=== PATIENT | female | born 1965 | race Caucasian/White ===

== ENCOUNTER → 2017-11-14 | Outpatient (CLI) | payer OTHER ==
[~2017-11-14] MED LIST: ALBU8.5H IH; APIX5TAB PO; ASPI-757 PO; AZIT-17 PO; CLOP75TA43 PO; COMPRESSION HOSE; METH4TAB66 PO; SUPPLEMENTS
--- NOTE | 2017-11-15 08:23 | RADIOLOGY IMAGING REPORT ---
FACILITY: [facility] - [place] PATIENT NAME: IHSAN GALINDO : [id number] MR: [id number] V: [id number] EXAM DATE: [id number] ORDERING PHYSICIAN: CHUY PERALTA TECHNOLOGIST: Kathryn Jhonston PROCEDURE:LEFT DIGITAL DIAGNOSTIC MAMMOGRAM WITH CAD ASSISTED INTERPRETATION & 3D TOMOSYNTHESIS. COMPARISON:Prior mammograms 07/17/17, 06/26/17. INDICATIONS:f/u l breast nodule FINDINGS: Small amount of fibroglandular tissue is seen throughout the Left breast. The vague area of architectural distortion upper outer quadrant of the Left breast appears less prominent. The nodular density in the upper outer quadrant of the Left breast also appears less prominent. There is no demonstration of malignant appearing mass, malignant appearing calcifications or other secondary sign of malignancy in the Left breast. DIAGNOSTIC CATEGORY 3--PROBABLY BENIGN FINDING. RECOMMENDATIONS: SIX MONTH FOLLOW-UP SCREENING MAMMOGRAM: BILATERAL BREASTS. IMPRESSION: BIRADS 3: Probably benign finding A 6 month follow-up bilateral mammogram is recommended at which time the patient will be due for her annual mammogram. Dictated by: Sepideh Milner M.D. on 11/14/2017 at 16:06 Transcribed by: CHRISTIANO on 11/15/2017 at 8:16 Approved by: Sepideh Milner M.D. on 11/15/2017 at 8:22 [facility]
== END ==
LOC: MAMO 01:46
PROVIDERS: ATTEND Emergency Medicine
DX: N63.20 Unspecified lump in the left breast, unspecified quadrant (principal); R92.8 Other abnormal and inconclusive findings on diagnostic imaging of breast
CPT/HCPCS: 77065

== ENCOUNTER → 2017-11-29 | Outpatient (CLI) | payer OTHER ==
[2017-11-29 16:03] LABS: PLATELET COUNT, AUTOMATED 252 K/uL (150-450)
--- NOTE | 2017-11-29 16:21 | RADIOLOGY IMAGING REPORT ---
FACILITY: [facility] PATIENT NAME: Edwin Lopez : 1965 MR: [id number] V: [id number] EXAM DATE: ORDERING PHYSICIAN: OG SALGUERO TECHNOLOGIST: Location: [facility] Patient: Edwin Lopez : 1965 Visit/Account:[id number] Date of Sevice: 11/29/2017 2 VIEWS CHEST INDICATION: Shortness of breath for one day. COMPARISON: 03/12/2016. FINDINGS: Cardiomediastinal silhouette and pulmonary vessels within normal limits. There is no focal infiltrate or lobar consolidation. There is no pneumothorax or pleural effusion. No nodule. Upper abdomen is unremarkable. No acute bony abnormality. IMPRESSION: 1. No acute cardiopulmonary process. Report Dictated By: Ayden Grande at 11/29/2017 4:16 PM Report E-Signed By: Ayden Grande at 11/29/2017 4:18 PM WSN:[id number]
== END ==
LOC: LAB 15:29
PROVIDERS: ATTEND Nurse Practitioner Primary Care
DX: R06.02 Shortness of breath (principal)
CPT/HCPCS: 36415; 71046; 82040; 82247; 82310; 82374; 82435; 82565; 82728; 82947; 83540; 83550; 83880; 84075; 84132; 84155; 84295; 84443; 84450; 84460; 84520; 85025; 85379

== ENCOUNTER → 2017-12-09 | Outpatient (CLI) | payer OTHER ==
[~2017-12-09] MED LIST changes: +CHOL200074 PO
== END ==
LOC: LAB 13:46
PROVIDERS: ATTEND Emergency Medicine
DX: E55.9 Vitamin D deficiency, unspecified (principal)
CPT/HCPCS: 36415; 82306

== ENCOUNTER → 2017-12-12 | Outpatient (CLI) | payer OTHER ==
--- NOTE | 2017-12-12 15:45 | RADIOLOGY IMAGING REPORT ---
FACILITY: [facility] - [place] PATIENT NAME: Edwin Lopez : 1965 MR: [id number] V: [id number] EXAM DATE: ORDERING PHYSICIAN: CHUY PERALTA TECHNOLOGIST: Location: [facility] Patient: Edwin Lopez : 1965 Visit/Account:[id number] Date of Sevice: 12/12/2017 Exam type: CHEST PA AND LAT History: history of pulmonary embolism with hypoxia Comparison: November 29, 2017 Findings: The lungs are free of acute effusions, infiltrates or edema. Cardiac swelling is normal in size. Th e trachea is in midline... There is no evidence of a pneumothorax or pneumomediastinum. There are m ild spondylotic changes of the thoracic spine. IMPRESSION: 1. No acute cardiac primary process is seen Report Dictated By: Sepideh Milner MD at 12/12/2017 3:39 PM Report E-Signed By: Sepideh Milner MD at 12/12/2017 3:40 PM WSN:[email or web address]
--- NOTE | 2017-12-12 16:19 | RADIOLOGY IMAGING REPORT ---
FACILITY: [facility] [place] PATIENT NAME: Ewdin Lopez : 1965 MR: [id number] V: [id number] EXAM DATE: ORDERING PHYSICIAN: CHUY PERALTA TECHNOLOGIST: [facility] Patient: Edwin Lopez : 1965 Visit/Account:[id number] Date of Sevice: 12/12/2017 EXAMINATION: Nuclear Medicine Ventilation Perfusion Lung Scan Additional Pertinent history: Shortness of breath. Hypoxia. History of pulmonary embolism. TECHNIQUE: 31.7 mCi Tc DTPA aerosol was administered by inhalation. Static, re-breathing and washout images were obtained. 2.2 mCi Tc MAA was injected intravenously. Gamma camera images were obtained of the chest in various orientations. COMPARISON STUDIES: none FINDINGS: There are multiple matched segmental and subsegmental ventilation-perfusion defects. No ventilation/p erfusion mismatches. This likely reflects the history of prior pulmonary emboli with scattered pulmon evette infarcts. Today's 2 view chest examination is normal without focal infiltrate or focal opacity. IMPRESSION: 1. Low probability for pulmonary embolism. Report Dictated By: Presley Jara at 12/12/2017 4:05 PM Report E-Signed By: Presley Jara at 12/12/2017 4:14 PM WSN:[id number]
== END ==
LOC: NUC 01:26
PROVIDERS: ATTEND Emergency Medicine
DX: M47.894 Other spondylosis, thoracic region (principal); R91.8 Other nonspecific abnormal finding of lung field
CPT/HCPCS: 71046; 78582; A9539; A9540

== ENCOUNTER → 2018-02-14 | Outpatient (CLI) | payer OTHER | LOC: RESP 06:37 | PROVIDERS: ATTEND Emergency Medicine | DX: J98.4 Other disorders of lung (principal) | CPT/HCPCS: 94060; 94726; 94729 ==

== ENCOUNTER → 2018-06-13 | Outpatient (CLI) | payer OTHER | LOC: LAB 16:21 | DX: I27.24 Chronic thromboembolic pulmonary hypertension (principal) | CPT/HCPCS: 36415; 84703 ==

== ENCOUNTER → 2018-07-24 | Outpatient (CLI) | payer OTHER | LOC: LAB 07:52 | PROVIDERS: ATTEND Internal Medicine Critical Care Medicine | DX: I27.24 Chronic thromboembolic pulmonary hypertension (principal) | CPT/HCPCS: 81025 ==

== ENCOUNTER → 2018-08-25 | Outpatient (CLI) | payer OTHER ==
[~2018-08-25] MED LIST changes: +ASPI-1471 PO; +RIOC2TAB PO; +[UNRECOGNIZED DRUG - CODE] PO
== END ==
LOC: LAB 13:45
PROVIDERS: ATTEND Internal Medicine Critical Care Medicine
DX: I27.24 Chronic thromboembolic pulmonary hypertension (principal)
CPT/HCPCS: 81025

== ENCOUNTER → 2018-09-29 | Outpatient (CLI) | payer OTHER | LOC: LAB 16:34 | DX: I27.24 Chronic thromboembolic pulmonary hypertension (principal) | CPT/HCPCS: 36415; 84703 ==

== ENCOUNTER → 2018-10-29 | Outpatient (CLI) | payer OTHER ==
[~2018-10-29] MED LIST changes: +ENOX100D5 SQ; +WARF1TAB15 PO; +WARF5TAB23 PO
[2018-10-29 15:41] LABS: PLATELET COUNT, AUTOMATED 344 K/uL (150-450)
[2018-10-29 16:06] LABS: LDL CHOLESTEROL 151 mg/dl
== END ==
LOC: LAB 15:09
PROVIDERS: ATTEND Emergency Medicine
DX: I82.90 Acute embolism and thrombosis of unspecified vein (principal); E66.9 Obesity, unspecified; D64.9 Anemia, unspecified
CPT/HCPCS: 36415; 82040; 82247; 82306; 82310; 82374; 82435; 82465; 82565; 82728; 82947; 83036; 83540; 83550; 83718; 84075; 84132; 84155; 84295; 84450; 84460; 84478; 84520; 85025

== ENCOUNTER 2018-11-26 09:45 | Outpatient (RCR) | payer OTHER ==
--- NOTE | 2018-10-29 15:40 | SPEECH INITIAL EVALUATION ---
VOCAL PRODUCTION EVALUATION REPORT NAME: Edwin Lopez EVALUATION DATE: 10/29/2018 DATE OF : [birth year] DIAGNOSIS: mild dysphonia s/p endotracheal intubation EXAMINER: Funmi Austin MS, [facility]-MILK ROUTE DELIVERER PHYSICIAN: Ruma Mata MD BACKGROUND The patient is a 53-year-old female who presents for a vocal production evaluation. The pt was referred for a vocal assessment by her primary care physician after CTEPH clot removal surgery in [place]. The patient was intubated for approximately 10 hours during the procedure, and then on a ventilator for 1-2 days. She reports experiencing a breathy voice after extubation, and subsequently underwent laryngoscopy for direct vocal fold visualization. Scope revealed incomplete glottic closure. The patient believed that L vocal fold hypermobility was also observed, likely in compensation for decreased R sided movement. She perceives significant improvement over the past week following return to [place]. She has been completing resonant speech exercises provided by an MILK ROUTE DELIVERER at the hospital in [place]. 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 She is on medical leave until November. VOCAL PRODUCTION ASSESSMENT Daily water intake: 8 glasses per day Throat clearing/Coughing: not observed; not endorsed Caffeine: pt has largely ceased caffeine Smoking hx: not reported Reflux hx: no diagnosis COPD hx: no. Breath Support: mixed clavicular/diaphragmatic. Maximum Phonation Time: 9 seconds (~15 seconds is considered WNL) s/z Ratio: 0.78; indicative of respiratory insufficiency. However, values obtained for longest sustained /s/ and /z/ were both low. The patient presents with subjectively deviant respiratory support and phonatory production, consistent with CTEPH (respiratory) and hx of recent intubation (phonatory). CAPE-V Pitch: mild deviation, inconsistent pitch breaks inconsistent pitch breaks during completion of pitch glides Breathiness: mild deviation, inconsistent Hoarseness: mild to moderate deviation, inconsistent Intensity: normal loudness Resonance: normal Overall Severity: mildly deviant vocal quality characterized by intermittent hoarseness, breathiness, and pitch breaks with decreased endurance/breath support for lengthy utterances Voice Handicap Index (VHI) Perceptual Measurement: During the evaluation, the pt was provided with a Vocal Handicap Index (VHI) to analyze perceived vocal changes and the functional impact of these changes on her life. The VHI is composed of three categories; physical, functional, and emotional subtests. An overall score of 0-30 reflects a minimal handicap, 31-60 reflects moderate handicap, and 60-120 is indicative of severe impairment. The patient was initially resistant to survey completion, and ultimately elected to complete the responses at home. Will report scores at subsequent treatment encounters. During informal interview procedures, the patient reported experiencing fatigue on the L side of her larynx, in addition to tension near her L ear. She states that hoarseness worsens throughout the day. 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 SUMMARY Pt presents with mild vocal deviation related recent history of endotracheal intubation with likely mechanical injury. Deficits most notably characterized by intermittently hoarse vocal quality. Infrequent pitch breaks and vocal breathiness also observed. Based on evaluation results, voice therapy is warranted to provide patient instruction in behavioral compensations and vocal exercises to minimize negative impact of changes in voice production on functional communication and on vocational responsibilities. An individualized program and home program will be established and trained. Pt was provided education re: vocal hygiene, normal voice production, goals for interventions, and a beginning list of home exercises. Prognosis: Excellent. Very strong motivation to participate. Eager to initiate home program. Strong desire to return to vocational responsibilities. Recommendations ST 2x/wk, 4wks. ENT referral if symptoms persist, including L sided ear pressure POC Short Term Goals 1. Pt will independently complete vocal exercise program to reduce vocal hoarseness, encourage healthy phonation, and efficiently coordinate vocal subsystems for normal overall vocal quality / functional communication. 2. Pt will establish volitional control of respiration evidenced by independently utilization of diaphragmatic breathing techniques during structured tasks. Golf Course Equipment Operator Goal Patient will return to vocal activities of daily living and workplace responsibilities with reduction and/or elimination of complaints regarding vocal production as evidenced by patient report and MILK ROUTE DELIVERER observations/ perceptual analysis. Thank you for this referral. Please call [phone] to contact with further questions or concerns. Respectfully, Funmi Austin M.S., [facility]-MILK ROUTE DELIVERER Physician Signature Date [*] MTDD
[~2018-11-26 09:45] MED LIST changes: +CHOL10005 PO; +CLIN300C99 PO; +FERR-53 PO; +WARF10TA10 PO; +WARF4TAB15 PO
--- NOTE | 2018-11-26 12:56 | SLP DISCHARGE NOTE ---
VOCAL PRODUCTION DISCHARGE SUMMARY Patient Name: Edwin Lopez Last Date of Treatment: 11/26/2018 Date of : [birth year] Clinician: Funmi Austin MS, CCC-CYLINDER SANDER OPERATOR Treatment Diagnosis: Dysphonia s/p endotracheal intubation. The patient is a 53-year-old female who initially presented to outpatient speech-language pathology services at [facility] for completion of a vocal production evaluation following CTEPH clot removal surgery in [place]. The patient was intubated for approximately 10 hours during the procedure, and then on a ventilator for 1-2 days. She experienced a breathy, hoarse vocal quality immediately after extubation, and subsequently underwent laryngoscopy for direct vocal fold visualization. Scope revealed incomplete glottic closure with L vocal fold hypo-mobility. She never endorsed any dysphagia. The pt has consistently attended a total of 8 treatment sessions (2x each week) since her initial assessment on 10/29/18. She was highly motivated to succeed with consistent completion of home exercises, and excellent progress since start of care. The pt has been working towards the following goals: 1. Pt will independently complete vocal exercise program to reduce vocal hoarseness, encourage healthy phonation, and efficiently coordinate vocal subsystems for normal overall vocal quality / functional communication. MET. The pt demonstrates independent completion of home exercise program with subsequent reduction in vocal hoarseness, heightened coordination of vocal subsystems, and overall improvement in vocal quality. Maximum phonation time has increased from 10 seconds to 13 seconds, and s/z ratio improved from 0.73 to 1.2. The pts s/z ratio during her initial evaluation was indicative of respiratory and phonatory insufficiency, whereas her current s/z ratio is considered within functional limits. Vocal quality is approaching normal, although fatigue continues to occur with prolonged periods of speaking. The pt demonstrates good comprehension of strategies to promote vocal hygiene and manage symptoms of vocal fatigue throughout the day. Successful techniques for modifying vocal quality have included direct phonation exercises, resonant voicing, postural modifications, diaphragmatic breathing, and speech rate reduction. Pt completed repeat laryngoscopy on 11/19/18. Vocal folds are now bilaterally mobile with complete adduction. 2. Pt will establish volitional control of respiration evidenced by independently utilization of diaphragmatic breathing techniques during structured tasks. MET. Pt exhibits independent utilization of diaphragmatic breathing techniques with significantly improved control of inspiratory and expiratory musculature. Breathing techniques have further addressed completion of upper body relaxation exercises. Improved breath support has resulted in subjectively increased vocal intensity, quality, and endurance during speaking tasks. Half-Way Goal Patient will return to vocal activities of daily living and workplace responsibilities with reduction and/or elimination of complaints regarding vocal production as evidenced by patient report and CYLINDER SANDER OPERATOR observations/ perceptual analysis. MET. 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 She reports significant reduction in complaints regarding vocal production with minimized vocal hoarseness, decline in vocal fatigue, and improved breath support for speaking tasks. The pt further reports that, [She] was really afraid at her initial evaluation, but is no longer afraid anymore. She feels prepared to go back to work. SUMMARY The pt has demonstrated notable improvement in overall vocal quality characterized by reduction in breathiness, hoarseness, and pitch breaks. She exhibits increased breath support, endurance, and intensity during vocal production. Improvements have also been observed in emotional and functional perception of vocal deficits on overall quality of life. This includes a reduction in fear associated with vocal impairments, and increased readiness to return to workplace responsibilities. Repeat laryngoscopy on 11/19/18 revealed that the pts vocal folds are now bilaterally mobile with complete adduction. Thank you for referring this patient to [facility] [place], Speech- Language Pathology. Please call [phone] to contact the CYLINDER SANDER OPERATOR with questions or concerns. Respectfully, Funmi Austin M.S., [facility]-CYLINDER SANDER OPERATOR Physician Signature Date MTDD
== END 2018-11-26 18:00 | disposition home or self-care (01) ==
LOC: ST 09:45
PROVIDERS: ATTEND Emergency Medicine
DX: R49.0 Dysphonia (principal); Z97.8 Presence of other specified devices
CPT/HCPCS: 92524

== ENCOUNTER → 2019-01-12 | Outpatient (CLI) | payer OTHER ==
[~2019-01-12] MED LIST changes: +CLOT15CR63 TP
--- NOTE | 2019-01-12 09:59 | RADIOLOGY IMAGING REPORT ---
FACILITY: [facility] - [place] PATIENT NAME: dEwin Lopez : 1965 MR: [id number] V: [id number] EXAM DATE: ORDERING PHYSICIAN: NUNU ESPINOZA TECHNOLOGIST: Location: [facility] [place] Patient: Edwin Lopez : 1965 Visit/Account:[id number] Date of Sevice: 01/12/2019 2 VIEWS CHEST INDICATION: Chronic thromboembolic pulmonary hypertension. Three months post PE. COMPARISON: X-ray examination of the chest from December 2017 FINDINGS: Heart silhouette is within normal limits. Operative change from cardiac surgery. The lungs are johnny r. No current failure, effusion or pneumothorax No acute bony finding. IMPRESSION: 1. No acute cardiopulmonary process. Report Dictated By: Paul Mauricio MD at 01/12/2019 9:54 AM Report E-Signed By: Paul Mauricio MD at 01/12/2019 9:55 AM WSN:[id number]
--- NOTE | 2019-01-12 10:05 | RADIOLOGY IMAGING REPORT ---
FACILITY: [facility] PATIENT NAME: Edwin Lopez : 1965 MR: [id number] V: [id number] EXAM DATE: ORDERING PHYSICIAN: NUNU ESPINOZA TECHNOLOGIST: Location: [facility] [place] Patient: Edwin Lopez : 1965 Visit/Account:[id number] Date of Sevice: 01/12/2019 LUNG PERFUSION AND VENTILATION HISTORY: History of PE x3 months TECHNIQUE: 31.8 mCi technetium 99m DTPA aerosol was administered by inhalation. Static, re-breathing and washout images were obtained. Three mCi Tc MAA was injected intravenously. Gamma camera images were obtained of the chest in variou s orientations. COMPARISON: Two view chest performed today and ventilation/perfusion lung scan December 12, 2017 FINDINGS: There is a matched segmental ventilation/perfusion defect posterior aspect of the left upper lobe whi ch was present on the prior VQ scan. This is apparently a chronic finding. Today's chest radiograph demonstrated no evidence of pulmonary consolidation or pleural effusions. IMPRESSION: Findings are consistent with low probability for pulmonary emboli Report Dictated By: Sepideh Milner MD at 01/12/2019 9:46 AM Report E-Signed By: Sepideh Milner MD at 01/12/2019 10:02 AM WSN:[email or web address]
== END ==
LOC: NUC 00:31
PROVIDERS: ATTEND Internal Medicine Critical Care Medicine
DX: I27.24 Chronic thromboembolic pulmonary hypertension (principal); Z98.890 Other specified postprocedural states
CPT/HCPCS: 71046; 78582; A9540; A9567